=== PATIENT | female | born 1980 | race Hispanic/Latino ===

== ENCOUNTER 2020-08-05 13:37 | Emergency (ER) | payer OTHER ==
[2020-08-05 15:17] LABS: Absolute Lymphocytes (CBC) 1.7 K/uL (0.7-4.9); Basophils % 0.6 % (0-1.3); Hematocrit 36.8 % (36.0-45.0); Lymphocytes % 20.5 % (15.3-44.8); MPV 9.2 fL (7.6-11.3); RBC Red Blood Cell Count 4.38 M/uL (3.86-4.86)
[2020-08-05 15:52] LABS: Urine Blood Negative (Negative); Urine Glucose Negative (Negative); Urine Protein Negative (Negative); Urine Specific Gravity 1.015 (1.005-1.030)
[2020-08-05 15:55] LABS: ALT/SGPT 32 U/L (12-78); AST/SGOT 20 U/L (15-37); Albumin 4.3 g/dL (3.4-5.0); Alkaline Phosphatase 98 U/L (45-117); BUN Blood Urea Nitrogen 15 mg/dL (7-18); Bicarbonate 24 mmol/L (21-32); Bilirubin Direct < 0.1 mg/dL (0-0.2); Bilirubin Total 0.3 mg/dL (0.2-1.0); Glucose Level 89 mg/dL (74-106); Magnesium 2.4 mg/dL (1.8-2.4); NT PRO-BNP 22 pg/mL (<125); Potassium 3.8 mmol/L (3.5-5.1); Sodium Level 139 mmol/L (136-145); Troponin (Emerg Dept Use Only) < 0.02 ng/mL (0.0-0.045)
--- NOTE | 2020-08-05 16:22 | RAD REPORT ---
EXAM DESCRIPTION: RAD - Chest Single View - 08/05/2020 3:58 pm CLINICAL HISTORY: CHEST PAIN TECHNIQUE: AP portable chest image was obtained 08/05/2020 3:58 pm . FINDINGS: Lungs are clear. Heart and vasculature are normal. No measurable pleural effusion and no p neumothorax. No acute bony abnormality seen. No acute aortic findings suspected. IMPRESSION: No acute cardiopulmonary process.
[2020-08-05 16:25] LABS: Urine Specific Gravity/Preg 1.015 (1.005-1.030)
--- NOTE | 2020-08-05 16:42 | EDPHYS ---
Physician Documentation [facility] Name: Yesenia Squires Age: 40 yrs Sex: Female : 1980 Arrival Date: 08/05/2020 Time: 13:43 Bed 20 Private MD: ED Physician Ya Scanlon HPI: 08/05 16:39 This 40 yrs old Female presents to ER via Ambulatory with complaints of Chest ma2 Pain > 30 y/o. 16:39 The patient or guardian reports chest pain that is located primarily in the substernal ma2 area. Onset: gradually, 1 day(s) ago. Associated signs and symptoms: Pertinent negatives: cough, lower extremity pain, lower extremity swelling, lightheadedness. Severity of pain: At its worst the pain was very mild in the emergency department the pain has resolved. The patient has experienced similar episodes in the past. 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 Client reports having NOT received the Covid vaccine. - Social history:: Smoking status: Patient denies any tobacco usage or history of. - Family history:: not pertinent. ROS: 16:39 Constitutional: Negative for fever, chills, and weight loss. ma2 16:39 All other systems are negative. Exam: 16:39 Constitutional: This is a well developed, well nourished patient who is awake, alert, ma2 and in no acute distress. Head/Face: Normocephalic, atraumatic. Eyes: Pupils equal round and reactive to light, extra-ocular motions intact. Lids and lashes normal. Conjunctiva and sclera are non-icteric and not injected. Cornea within normal limits. Periorbital areas with no swelling, redness, or edema. ENT: Nares patent. No nasal discharge, no septal abnormalities noted. Tympanic membranes are normal and external auditory canals are clear. Oropharynx with no redness, swelling, or masses, exudates, or evidence of obstruction, uvula midline. Mucous membranes moist. Neck: Trachea midline, no thyromegaly or masses palpated, and no cervical lymphadenopathy. Supple, full range of motion without nuchal rigidity, or vertebral point tenderness. No Meningismus. Chest/axilla: Normal chest wall appearance and motion. Nontender with no deformity. No lesions are appreciated. Cardiovascular: Regular rate and rhythm with a normal S1 and S2. No gallops, murmurs, or rubs. Normal PMI, no JVD. No pulse deficits. Respiratory: Lungs have equal breath sounds bilaterally, clear to auscultation and percussion. No rales, rhonchi or wheezes noted. No increased work of breathing, no retractions or nasal flaring. Abdomen/GI: Soft, non-tender, with normal bowel sounds. No distension or tympany. No guarding or rebound. No evidence of tenderness throughout. Back: No spinal tenderness. No costovertebral tenderness. Full range of motion. Skin: Warm, dry with normal turgor. Normal color with no rashes, no lesions, and no evidence of cellulitis. MS/ Extremity: Pulses equal, no cyanosis. Neurovascular intact. Full, normal range of motion. Neuro: Awake and alert, GCS 15, oriented to person, place, time, and situation. Cranial nerves II-XII grossly intact. Motor strength 5/5 in all extremities. Sensory grossly intact. Cerebellar exam normal. Normal gait. Vital Signs: 14:02 BP 125 / 76; Pulse 89; Resp 16; Temp 98.9; Pulse Ox 100% ; Weight 68.04 kg; Height 5 ss ft. 3 in. (160.02 cm); Pain 5/10; 15:55 BP 120 / 82; Pulse 74; Resp 16 S; Pulse Ox 100% on R/A; ca1 16:50 BP 120 / 82; Pulse 71; Resp 16 S; Pulse Ox 99% on R/A; ca1 14:02 Body Mass Index 26.57 (68.04 kg, 160.02 cm) ss MDM: 14:59 Patient medically screened. ma2 16:39 Differential diagnosis: costochondritis, esophagitis, gastritis, gastroesophageal ma2 reflux disease (GERD). Data reviewed: vital signs, nurses notes. 16:41 Counseling: I had a detailed discussion with the patient and/or guardian regarding: the ma2 historical points, exam findings, and any diagnostic results supporting the discharge/admit diagnosis, the presence of at least one elevated blood pressure reading (>120/80) during this emergency department visit, the need for outpatient follow up. 16:42 ED course: calos score is zero, chest pain is reproducible on exam, it is resolved, last ma2 episode was 10 hrs ago . 08/05 15:00 Order name: Basic Metabolic Panel [facility] 08/05 15:00 Order name: CBC with Diff; Complete Time: 15:54 [facility] 08/05 15:00 Order name: LFT's; Complete Time: 16:18 [facility] 08/05 15:00 Order name: Magnesium; Complete Time: 16:18 [facility] 08/05 15:00 Order name: NT PRO-BNP; Complete Time: 16:18 [facility] 08/05 15:00 Order name: PT-INR; Complete Time: 15:54 [facility] 08/05 15:00 Order name: Troponin (emerg Dept Use Only); Complete Time: 16:18 [facility] 08/05 15:00 Order name: XRAY Chest (1 view); Complete Time: 16:41 [facility] 08/05 15:00 Order name: EKG; Complete Time: 15:01 [facility] 08/05 15:00 Order name: Cardiac monitoring; Complete Time: 15:01 [facility] 08/05 15:00 Order name: EKG - Nurse/Tech; Complete Time: 15:01 [facility] 08/05 15:00 Order name: Basic Metabolic Panel; Complete Time: 16:18 EDMS 08/05 15:51 Order name: Urine Dipstick-Ancillary; Complete Time: 15:54 EDMS 08/05 15:55 Order name: Urine --Ancillary (enter results); Complete Time: 16:41 dh3 08/05 15:00 Order name: IV Saline Lock; Complete Time: 15:06 [facility] 08/05 15:00 Order name: Labs collected and sent; Complete Time: 15:06 [facility] 08/05 15:00 Order name: O2 Per Protocol; Complete Time: 15:01 [facility] 08/05 15:00 Order name: O2 Sat Monitoring; Complete Time: 15:01 [facility] 08/05 15:01 Order name: Urine Dipstick-Ancillary (obtain specimen); Complete Time: 15:52 ma2 Administered Medications: No medications were administered Disposition: 08/05/20 16:42 Discharged to Home. Impression: Chest pain, unspecified. - Condition is Stable. - Discharge Instructions: Nonspecific Chest Pain. - Prescriptions for Diclofenac Sodium 75 mg Oral Tablet Sustained Release - take 1 tablet by ORAL route 2 times per day; 30 tablet. - Medication Reconciliation Form, Thank You Letter, Antibiotic Education, Prescription Opioid Use form. - Follow up: Private Physician; When: Tomorrow; Reason: Continuance of care. Signatures: Dispatcher [employer] EDJessica Renner RN RN Ya Scanlon MD MD ma2 Emily Sebastian RN RN ca1 Corrections: (The following items were deleted from the chart) 17:03 16:42 08/05/2020 16:42 Discharged to Home. Impression: Chest pain, unspecified. ca1 Condition is Stable. Forms are Medication Reconciliation Form, Thank You Letter, Antibiotic Education, Prescription Opioid Use. Follow up: Private Physician; When: Tomorrow; Reason: Continuance of care. ma2
--- NOTE | 2020-08-05 16:42 | ER ---
Nurse's Notes [facility] Name: Yesenia Squires Age: 40 yrs Sex: Female : 1980 Arrival Date: 08/05/2020 Time: 13:43 Bed 20 Private MD: Diagnosis: Chest pain, unspecified Presentation: 08/05 14:02 Chief complaint: Patient states: Mid chest pressure with SOB with exertion for 4 days. ss Dizziness at times. No cough or fever. States she has been working hard out in the heat for the past two weeks. Feels slightly "panic"-y. Coronavirus screen: Client denies travel out of the [place] in the last 14 days. At this time, the client does not indicate any symptoms associated with coronavirus-19. Ebola Screen: Patient denies travel to an Ebola-affected area in the 21 days before illness onset. Initial Sepsis Screen: Does the patient meet any 2 criteria? No. Patient's initial sepsis screen is negative. Does the patient have a suspected source of infection? No. Patient's initial sepsis screen is negative. Risk Assessment: Do you want to hurt yourself or someone else? Patient reports no desire to harm self or others. Onset of symptoms was August 02, 2020. 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 Client reports having NOT received the Covid vaccine. - Social history:: Smoking status: Patient denies any tobacco usage or history of. - Family history:: not pertinent. Screenin:55 Abuse screen: Denies threats or abuse. Denies injuries from another. Nutritional ca1 screening: No deficits noted. Tuberculosis screening: No symptoms or risk factors identified. Fall Risk IV access (20 points). Assessment: 14:55 General: Appears in no apparent distress. comfortable, Behavior is calm, cooperative, ca1 appropriate for age. Pain: Complains of pain in mid-sternal area Pain does not radiate. Pain currently is 4 out of 10 on a pain scale. Quality of pain is described as pressure, Pain began 4 days Is continuous. Neuro: Level of Consciousness is awake, alert, obeys commands, Oriented to. Cardiovascular: Heart tones S1 S2 present Capillary refill < 3 seconds Patient's skin is warm and dry. Rhythm is sinus rhythm. 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 GI: Abdomen is flat, non-distended, Bowel sounds present X 4 quads. Abd is soft and non tender X 4 quads. : No signs and/or symptoms were reported regarding the genitourinary system. EENT: No signs and/or symptoms were reported regarding the EENT system. Derm: Skin is intact, is healthy with good turgor, Skin is pink, warm \\T\\ dry. Musculoskeletal: Circulation, motion, and sensation intact. Capillary refill < 3 seconds. 15:55 Reassessment: Patient appears in no apparent distress at this time. Patient and/or ca1 family updated on plan of care and expected duration. Pain level reassessed. Patient is alert, oriented x 3, equal unlabored respirations, skin warm/dry/pink. 16:50 Reassessment: Patient appears in no apparent distress at this time. Patient and/or ca1 family updated on plan of care and expected duration. Pain level reassessed. Patient is alert, oriented x 3, equal unlabored respirations, skin warm/dry/pink. Vital Signs: 14:02 BP 125 / 76; Pulse 89; Resp 16; Temp 98.9; Pulse Ox 100% ; Weight 68.04 kg; Height 5 ss ft. 3 in. (160.02 cm); Pain 5/10; 15:55 BP 120 / 82; Pulse 74; Resp 16 S; Pulse Ox 100% on R/A; ca1 16:50 BP 120 / 82; Pulse 71; Resp 16 S; Pulse Ox 99% on R/A; ca1 14:02 Body Mass Index 26.57 (68.04 kg, 160.02 cm) ED Course: 13:43 Patient arrived in ED. wm 14:01 Arm band placed on. ss 14:04 Triage completed. ss 14:55 Patient has correct armband on for positive identification. Bed in low position. Call ca1 light in reach. Side rails up X2. Placed in gown. court monitor on. Pulse ox on. NIBP on. Warm blanket given. 14:58 Emily Sebastian, RN is Primary Nurse. ca1 14:59 Ya Scanlon MD is Attending Physician. maCornelia 15:00 No provider procedures requiring assistance completed. Patient maintains SpO2 ca1 saturation greater than 95% on room air. 15:06 Initial lab(s) drawn, by me, sent to lab. Inserted saline lock: 20 gauge in right ca1 antecubital area, using aseptic technique. Blood collected. 15:58 XRAY Chest (1 view) In Process Unspecified. EDMS 17:03 IV discontinued, intact, bleeding controlled, No redness/swelling at site. Pressure ca1 dressing applied. Administered Medications: No medications were administered Outcome: 16:42 Discharge ordered by . [facility] 17:03 Discharged to home ambulatory, with significant other. ca1 17:03 Condition: stable 17:03 Discharge instructions given to patient, Instructed on discharge instructions, follow up and referral plans. medication usage, Demonstrated understanding of instructions, follow-up care, medications, Prescriptions given X 1. 17:03 Patient left the ED. ca1 Signatures: Dispatcher [employer] EDMO Jessica Hammond RN RN Ya Scanlon MD MD ma2 Acob, Cheryl, RN RN [facility] Dorothy Ya
[2020-08-05 17:19] VITALS: TEMP 98.9
[2020-08-05 17:21] VITALS: BP 120/82
[2020-08-05 17:27] VITALS: O2SAT 99
--- NOTE | 2020-08-06 09:45 | EKG ---
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
== END 2020-08-05 17:03 | disposition home or self-care (01) ==
LOC: ER 13:37
DX: R07.9 Chest pain, unspecified (principal)
CPT/HCPCS: 36415; 71045; 80048; 80076; 81003; 81025; 83735; 83880; 84484; 85025; 85610; 93005